=== PATIENT | female | born 2000 | race Hispanic/Latino ===

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

== ENCOUNTER 2021-01-07 17:13 | Emergency (ER) | payer OTHER ==
[2021-01-07 18:16] LABS: #Lymphocytes 1.2 thou/uL (1.20-3.40); #Monocytes 0.5 thou/uL (0.11-0.59); #Neutrophils 6.3 thou/uL (1.40-6.50); %Basophils 0.3 % (0.0-1.0); %Eosinophils 0.3 % (0.0-10.0); %Lymphocytes 14.8 % (28.0-48.0); %Monocytes 5.7 % (0.0-4.0); %Neutrophils 78.9 % (31.0-61.0); Hemoglobin 13.6 g/dL (12.0-16.0); Mean Corpuscular HGB CONC 33.9 g/dL (32.0-36.0); Mean Corpuscular Hemoglobin 30.4 pg (25.0-35.0); Mean Corpuscular Volume 89.6 fL (78.0-98.0); Mean Platelet Volume 8.4 fL (7.4-10.4); Platelet Count 184 thou/uL (130-400); RBC Distribution Width 11.7 % (11.5-14.5); Red Blood Cell (RBC) Count 4.47 mill/uL (4.00-5.20)
[2021-01-07 18:19] LABS: Bacteria/HPF None Seen HPF (None Seen); Bilirubin Negative (Negative); Blood, Urine Negative (Negative); Clarity Clear (Clear); Glucose, Urine (Dipstick) Normal (Negative); Ketone, Urine 60 mg/dL (Negative); Leukocyte Negative Leu/uL (Negative); Nitrite Negative (Negative); Protein, Urine (Dipstick) 50 mg/dL (Neg-Trace); RBC/HPF 0-3 HPF (0-3); Specific Gravity, Urine 1.033 (1.002-1.036); WBC/HPF 0-3 HPF (0-3)
[2021-01-07 18:21] LABS: Pregnancy Test - Urine (BHCG) POSITIVE (Negative); Pregu Control Background? CLEAR/WHITE (CLR/WHITE); Pregu Control Bar Appear? YES (CONTROL BAR); Specific Gravity 1.033 (1.002-1.036)
== END 2021-01-07 20:15 | disposition home or self-care (01) ==
LOC: ERS 17:13
DX: O26.853 Spotting complicating pregnancy, third trimester (principal); O99.891 Other specified diseases and conditions complicating pregnancy; R51.9 Headache, unspecified; Z3A.28 28 weeks gestation of pregnancy
CPT/HCPCS: 76856; 81003; 81015; 81025; 84702; 85025; 86850; 86900; 86901

== ENCOUNTER 2021-10-04 09:18 | Emergency (ER) | payer OTHER, SELFPAY ==
[2021-10-04] MEDS ORDERED: Acetaminophen 500 MG TAB ONE (10:11)
[2021-10-04 21:48] LABS: SARS-CoV-2 PCR by NAA Not Detected (NotDetected)
== END 2021-10-04 11:44 | disposition home or self-care (01) ==
LOC: ERS 09:18
DX: O99.511 Diseases of the respiratory system complicating pregnancy, first trimester (principal); J10.1 Influenza due to other identified influenza virus with other respiratory manifestations; Z20.822 Contact with and (suspected) exposure to COVID-19; Z3A.01 Less than 8 weeks gestation of pregnancy
CPT/HCPCS: 36415; 84702; 87804; 99283; U0003; U0005

== ENCOUNTER 2021-11-19 22:56 | Emergency (ER) | payer MEDICAID, SELFPAY ==
[2021-11-19] MEDS ORDERED: Metoclopramide HCl 10 MG/2 ML VIAL ONE (23:26)
[2021-11-19] MEDS ORDERED: Dicyclomine 20 MG/2 ML VIAL ONE (23:26)
[2021-11-19] MEDS ORDERED: diphenhydrAMINE 50 MG/ML VIAL ONE (23:27)
[2021-11-19 23:48] LABS: #Eosinphils 0.1 thou/uL (0.0-0.7); #Lymphocytes 1.4 thou/uL (1.20-3.40); #Monocytes 0.3 thou/uL (0.11-0.59); #Neutrophils 3.6 thou/uL (1.40-6.50); %Basophils 0.2 % (0.0-1.0); %Eosinophils 1.3 % (0.0-10.0); %Lymphocytes 25.9 % (28.0-48.0); %Monocytes 6.3 % (0.0-4.0); %Neutrophils 66.3 % (31.0-61.0); Hemoglobin 13.3 g/dL (12.0-16.0); Mean Corpuscular HGB CONC 33.2 g/dL (32.0-36.0); Mean Corpuscular Hemoglobin 30.4 pg (25.0-35.0); Mean Corpuscular Volume 91.5 fL (78.0-98.0); Mean Platelet Volume 8.1 fL (7.4-10.4); Platelet Count 220 thou/uL (130-400); RBC Distribution Width 12.3 % (11.5-14.5); Red Blood Cell (RBC) Count 4.36 mill/uL (4.00-5.20); White Blood Cell (WBC) Count 5.4 thou/uL (4.8-10.8)
[2021-11-20 00:46] LABS: Bilirubin Negative (Negative); Blood, Urine Negative (Negative); Clarity Clear (Clear); Glucose, Urine (Dipstick) Normal (Negative); Ketone, Urine Negative (Negative); Leukocyte Negative Leu/uL (Negative); Nitrite Negative (Negative); Protein, Urine (Dipstick) Negative (Neg-Trace); Specific Gravity, Urine 1.009 (1.002-1.036); Urobilinogen Normal mg/dL (Less than 2); pH, Urine 5.5 (5.0-9.0)
[2021-11-20 18:37] LABS: Chlam.trachomatis by PCR,Urine Not Detected (NotDetected)
== END 2021-11-20 02:54 | disposition home or self-care (01) ==
LOC: ERS 22:56
DX: O20.0 Threatened abortion (principal); O99.891 Other specified diseases and conditions complicating pregnancy; R51.9 Headache, unspecified; Z3A.12 12 weeks gestation of pregnancy
CPT/HCPCS: 36415; 76856; 81003; 84702; 85025; 86900; 86901; 87480; 87491; 87510; 87591; 87660; 96374; 96375; J0500; J1200; J2765

== ENCOUNTER 2021-12-11 14:48 | Emergency (ER) | payer MEDICAID ==
[2021-12-11 15:37] LABS: #Lymphocytes 0.9 thou/uL (1.20-3.40); #Monocytes 0.4 thou/uL (0.11-0.59); %Basophils 0.4 % (0.0-1.0); %Eosinophils 0.9 % (0.0-10.0); %Lymphocytes 16.2 % (28.0-48.0); %Neutrophils 75.5 % (31.0-61.0); Hemoglobin 12.4 g/dL (12.0-16.0); Mean Corpuscular HGB CONC 33.7 g/dL (32.0-36.0); Mean Corpuscular Hemoglobin 30.6 pg (25.0-35.0); Mean Corpuscular Volume 90.9 fL (78.0-98.0); Mean Platelet Volume 7.8 fL (7.4-10.4); Platelet Count 182 thou/uL (130-400); Red Blood Cell (RBC) Count 4.04 mill/uL (4.00-5.20); White Blood Cell (WBC) Count 5.3 thou/uL (4.8-10.8)
[2021-12-11 15:58] LABS: ALT (SGPT) 14 U/L (8-55); AST (SGOT) 16 U/L (5-34); Albumin 3.5 g/dL (3.5-5.0); Alkaline Phosphatase 60 U/L (40-100); Anion Gap 12 mmol/L (10-20); BUN (Urea Nitrogen) 8 mg/dL (7.0-18.7); Bilirubin, Total 0.3 mg/dL (0.2-1.2); Calc. Creatinine Clearance 0 mL/min (70-130); Calcium 8.9 mg/dL (7.8-10.44); Carbon Dioxide 22 mmol/L (22-29); Chloride 106 mmol/L (98-107); Globulin 2.8 g/dL (2.4-3.5); Glucose 77 mg/dL (70-105); Potassium 3.7 mmol/L (3.5-5.1); Protein, Total 6.3 g/dL (6.0-8.3); Sodium 136 mmol/L (136-145)
== END 2021-12-11 17:40 | disposition home or self-care (01) ==
LOC: ERS 14:48
DX: O20.0 Threatened abortion (principal); Z3A.15 15 weeks gestation of pregnancy
CPT/HCPCS: 36415; 76815; 80053; 84702; 85025; 86900; 86901

== ENCOUNTER 2022-12-01 13:29 | Emergency (ER) | payer OTHER ==
[2022-12-01 14:21] LABS: Bilirubin Negative (Negative); Blood, Urine 3+ (Negative); Clarity Turbid (Clear); Glucose, Urine (Dipstick) Normal (Negative); Ketone, Urine Negative (Negative); Leukocyte 250 Leu/uL (Negative); Nitrite Negative (Negative); Protein, Urine (Dipstick) Negative (Neg-Trace); RBC/HPF Greater than 50 HPF (0-3); Specific Gravity, Urine 1.021 (1.002-1.036); Urobilinogen Normal mg/dL (Less than 2); WBC/HPF 21-50 HPF (0-3)
[2022-12-01 14:22] LABS: Bacteria/HPF 1+ HPF (None Seen)
[2022-12-01 14:23] LABS: Pregnancy Test - Urine (BHCG) Negative (Negative); Pregu Control Background? CLEAR/WHITE (CLR/WHITE); Pregu Control Bar Appear? YES (CONTROL BAR); Specific Gravity 1.021 (1.002-1.036)
== END 2022-12-01 14:41 | disposition home or self-care (01) ==
LOC: ERS 13:29
DX: N39.0 Urinary tract infection, site not specified (principal); F17.290 Nicotine dependence, other tobacco product, uncomplicated
CPT/HCPCS: 81003; 81015; 81025; 99284

== ENCOUNTER 2023-06-08 22:28 | Emergency (ER) | payer OTHER, SELFPAY ==
[2023-06-08] MEDS ORDERED: Acetaminophen 500 MG TAB ONE (22:57)
[2023-06-08 23:03] LABS: #Monocytes 0.5 thou/uL (0.11-0.59); #Neutrophils 8.9 thou/uL (1.40-6.50); %Basophils 0.2 % (0.0-1.0); %Eosinophils 0.2 % (0.0-10.0); %Lymphocytes 7.6 % (21.0-51.0); %Monocytes 4.9 % (0.0-10.0); Hematocrit 43.2 % (36.0-47.0); Hemoglobin 14.3 g/dL (12.0-16.0); Mean Corpuscular HGB CONC 33.1 g/dL (32.0-36.0); Mean Corpuscular Hemoglobin 28.8 pg (27.0-31.0); Mean Corpuscular Volume 86.9 fl (78.0-98.0); Mean Platelet Volume 10.5 fL (7.4-10.4); Platelet Count 241 10x3/uL (130-400); RBC Distribution Width 12.6 % (11.5-14.5); Red Blood Cell (RBC) Count 4.97 mill/uL (4.20-5.40); White Blood Cell (WBC) Count 10.2 10x3/uL (4.8-10.8)
[2023-06-08 23:07] LABS: Bacteria/HPF None Seen HPF (None Seen); Bilirubin Negative (Negative); Blood, Urine Negative (Negative); CAUTI Indications for Culture Pelvic or flank pain; Clarity Clear (Clear); Glucose, Urine (Dipstick) Normal (Negative); Ketone, Urine Negative (Negative); Leukocyte Negative Leu/uL (Negative); Nitrite Negative (Negative); Protein, Urine (Dipstick) Negative (Neg-Trace); RBC/HPF 0-3 HPF (0-3); Specific Gravity, Urine 1.019 (1.002-1.036); Squamous Epithelial 0-3 HPF (0-3); Urobilinogen Normal mg/dL (Less than 2); WBC/HPF 0-3 HPF (0-3)
[2023-06-08 23:08] LABS: Urine Culture Reflex No No
[2023-06-08 23:28] LABS: ALT (SGPT) 25 U/L (8-55); AST (SGOT) 29 U/L (5-34); Albumin 4.9 g/dL (3.5-5.0); Alkaline Phosphatase 69 U/L (40-110); Anion Gap 13 mmol/L (10-20); BUN (Urea Nitrogen) 11 mg/dL (7.0-18.7); Bilirubin, Total 0.3 mg/dL (0.2-1.2); Calc. Creatinine Clearance 0 mL/min (70-130); Calcium 9.5 mg/dL (7.8-10.44); Carbon Dioxide 25 mmol/L (22-29); Chloride 101 mmol/L (98-107); Estimated GFR 116; Glucose 91 mg/dL (70-105); Potassium 3.7 mmol/L (3.5-5.1); Protein, Total 7.9 g/dL (6.0-8.3); Sodium 135 mmol/L (136-145)
[2023-06-08 23:57] LABS: SARS-CoV-2 NAA Rapid Test Not Detected (NotDetected)
[2023-06-09] MEDS ORDERED: Ketorolac Tromethamine 30 MG/ML VIAL ONE (00:21)
[2023-06-09] MEDS ORDERED: Piperacillin/Tazobactam 3.375 GM VIAL ONE (00:22)
[2023-06-09] MEDS ORDERED: Sodium Chloride 0.9% 100 ML ONE (00:25)
[2023-06-09] MEDS ORDERED: Iopamidol-370 76% 500 ML MDV (1 ML CHARGE) ONE (10:06)
== END 2023-06-09 02:15 | disposition home or self-care (01) ==
LOC: ERS 22:28
DX: B34.9 Viral infection, unspecified (principal); F17.200 Nicotine dependence, unspecified, uncomplicated; Z20.822 Contact with and (suspected) exposure to COVID-19
CPT/HCPCS: 71045; 74177; 80053; 81001; 83605; 85025; 87040; 96361; 96365; 96375; J1885; J2543; J3490; Q9967

== ENCOUNTER 2023-08-02 09:47 | Day surgery (SDC) | payer SELFPAY ==
[2023-08-02] MEDS ORDERED: Morphine 4 MG/ML VIAL ONE (10:13)
[2023-08-02] MEDS ORDERED: Ondansetron PF 4 MG/2 ML Vial ONE ×3 (10:14→15:22)
[2023-08-02 10:31] LABS: #Eosinphils 0.1 thou/uL (0.0-0.7); #Monocytes 0.3 thou/uL (0.11-0.59); #Neutrophils 2.6 thou/uL (1.40-6.50); %Basophils 0.5 % (0.0-1.0); %Eosinophils 1.5 % (0.0-10.0); %Lymphocytes 24.2 % (21.0-51.0); %Monocytes 8.1 % (0.0-10.0); %Neutrophils 65.7 % (42.0-75.0); Hematocrit 40.4 % (36.0-47.0); Hemoglobin 13.4 g/dL (12.0-16.0); Mean Corpuscular HGB CONC 33.2 g/dL (32.0-36.0); Mean Corpuscular Hemoglobin 28.6 pg (27.0-31.0); Mean Corpuscular Volume 86.3 fl (78.0-98.0); Mean Platelet Volume 10.6 fL (7.4-10.4); Platelet Count 219 10x3/uL (130-400); RBC Distribution Width 12.7 % (11.5-14.5); Red Blood Cell (RBC) Count 4.68 mill/uL (4.20-5.40)
[2023-08-02 10:37] LABS: BHCG - Serum Negative (NEGATIVE); Pregs Control Background? CLEAR/WHITE (CLR/WHITE); Pregs Control Bar Appear? YES (CONTROL BAR)
[2023-08-02 10:58] LABS: Troponin I Less than 0.010 ng/mL (< 0.028)
[2023-08-02 11:00] LABS: ALT (SGPT) 15 U/L (8-55); AST (SGOT) 32 U/L (5-34); Albumin 4.3 g/dL (3.5-5.0); Alkaline Phosphatase 72 U/L (40-110); Anion Gap 10 mmol/L (10-20); BUN (Urea Nitrogen) 12 mg/dL (7.0-18.7); Bilirubin, Total 0.8 mg/dL (0.2-1.2); Calc. Creatinine Clearance 0 mL/min (70-130); Calcium 9.4 mg/dL (7.8-10.44); Carbon Dioxide 26 mmol/L (22-29); Chloride 107 mmol/L (98-107); Estimated GFR 114; Globulin 3.6 g/dL (2.4-3.5); Glucose 78 mg/dL (70-105); Lipase 26 U/L (8-78); Potassium 3.8 mmol/L (3.5-5.1); Protein, Total 7.9 g/dL (6.0-8.3); Sodium 139 mmol/L (136-145)
[2023-08-02] MEDS ORDERED: Sodium Chloride 0.9% 100 ML ONE (11:40)
[2023-08-02] MEDS ORDERED: Piperacillin/Tazobactam 3.375 GM VIAL ONE (11:40)
[2023-08-02] MEDS ORDERED: Ibuprofen 200 MG TAB PO SCH ×2 (12:00→21:00)
[2023-08-02] MEDS ORDERED: Morphine 2 MG/ML VIAL SLOW IVP PRN (12:07)
[2023-08-02 12:36] LABS: Bacteria/HPF None Seen HPF (None Seen); Bilirubin Negative (Negative); Blood, Urine Negative (Negative); CAUTI Indications for Culture Pelvic or flank pain; Clarity Turbid (Clear); Glucose, Urine (Dipstick) Normal (Negative); Ketone, Urine Negative (Negative); Leukocyte 25 Leu/uL (Negative); Nitrite Negative (Negative); Protein, Urine (Dipstick) Negative (Neg-Trace); RBC/HPF 0-3 HPF (0-3); Specific Gravity, Urine 1.013 (1.002-1.036); Urobilinogen Normal mg/dL (Less than 2); WBC/HPF 0-3 HPF (0-3); pH, Urine 5.5 (5.0-9.0)
[2023-08-02 12:39] LABS: Urine Culture Reflex No No
[2023-08-02] MEDS ORDERED: traMADol HCl 50 MG TAB PO SCH (13:00)
[2023-08-02] MEDS ORDERED: LevoFLOXacin 500 mg/D5W 500 MG in Premix 1 BAG IVPB SCH (13:15)
[2023-08-02] MEDS ORDERED: Ketorolac Tromethamine 30 MG/ML VIAL IVP SCH (13:15)
[2023-08-02] MEDS ORDERED: Scopolamine 1 mg/72 hour Patch TOP SCH (13:15)
[2023-08-02] MEDS ORDERED: Sodium Chloride 0.9% 1,000 ML IV SCH (13:15)
[2023-08-02] MEDS ORDERED: Ketorolac Tromethamine 30 MG/ML VIAL ONE (13:20)
[2023-08-02] MEDS ORDERED: LevoFLOXacin 500 mg/D5W 100 ML BAG ONE (13:20)
[2023-08-02] MEDS ORDERED: Meperidine HCl/PF 25 MG/ML VIAL ONE (13:33)
[2023-08-02] MEDS ORDERED: PROPOFOL 20 ML ONE (13:58)
[2023-08-02] MEDS ORDERED: Rocuronium Bromide 10 MG/ML (10ML VIAL) ONE ×2 (13:58→15:22)
[2023-08-02] MEDS ORDERED: Lidocaine 1% PF 5 ML VIAL ONE ×2 (13:58→15:22)
[2023-08-02] MEDS ORDERED: Succinylcholine 200 MG/10 ml SYRINGE FS ONE ×2 (13:58→15:22)
[2023-08-02] MEDS ORDERED: Acetaminophen 325 MG TAB PO SCH (14:00)
[2023-08-02] MEDS ORDERED: EPINEPHrine 1 MG/ML VIAL ONE (14:21)
[2023-08-02] MEDS ORDERED: Bupivacaine PF 0.5% 30 ML VIAL ONE (14:22)
[2023-08-02] MEDS ORDERED: fentaNYL 50 mcg/mL 1 mL Vial ONE (15:13)
[2023-08-02] MEDS ORDERED: Dexamethasone 20 MG/5 ML VIAL ONE ×2 (15:15→15:22)
[2023-08-02] MEDS ORDERED: Metoclopramide HCl 10 MG/2 ML VIAL ONE ×2 (15:16→15:22)
[2023-08-02] MEDS ORDERED: Glycopyrrolate 0.2 MG/ML 5 ML SYRINGE ONE ×2 (15:22→15:53)
[2023-08-02] MEDS ORDERED: PROPOFOL 200 MG/20 ML VIAL ONE (15:22)
[2023-08-02] MEDS ORDERED: NEOSTIGMINE 3 MG/3 ML SYR 3 MG/3 ML SYRINGE ONE ×2 (15:22→15:53)
== END 2023-08-02 17:37 | disposition home or self-care (01) ==
LOC: ERS 09:47 → SDC 12:30
PROVIDERS: ATTEND Surgery
PROC: 0FT40ZZ Resection of Gallbladder, Open Approach (ICD-10-PCS; principal; 2023-08-02)
DX: K80.12 Calculus of gallbladder with acute and chronic cholecystitis without obstruction (principal); F17.290 Nicotine dependence, other tobacco product, uncomplicated
CPT/HCPCS: 71045; 76705; 80053; 81001; 83690; 84484; 84703; 85025; 88304; 93005; 96361; 96365; 96375; C1889; J0171; J1100; J1885; J1956; J2175; J2270; J2405; J2543; J2704; J2765; J3010; J3490; S0020

== ENCOUNTER 2023-08-07 00:49 | Emergency (ER) | payer SELFPAY ==
[2023-08-07 02:10] LABS: #Eosinphils 0.1 thou/uL (0.0-0.7); #Monocytes 0.3 thou/uL (0.11-0.59); #Neutrophils 3.4 thou/uL (1.40-6.50); %Basophils 0.4 % (0.0-1.0); %Eosinophils 1.3 % (0.0-10.0); %Lymphocytes 14.9 % (21.0-51.0); %Monocytes 7.1 % (0.0-10.0); %Neutrophils 76.1 % (42.0-75.0); Hematocrit 42.8 % (36.0-47.0); Hemoglobin 14.1 g/dL (12.0-16.0); Mean Corpuscular HGB CONC 32.9 g/dL (32.0-36.0); Mean Corpuscular Volume 87.9 fl (78.0-98.0); Mean Platelet Volume 10.7 fL (7.4-10.4); Platelet Count 210 10x3/uL (130-400); RBC Distribution Width 12.8 % (11.5-14.5); Red Blood Cell (RBC) Count 4.87 mill/uL (4.20-5.40); White Blood Cell (WBC) Count 4.5 10x3/uL (4.8-10.8)
[2023-08-07] MEDS ORDERED: Ondansetron PF 4 MG/2 ML Vial ONE (02:32)
[2023-08-07] MEDS ORDERED: Morphine 4 MG/ML VIAL ONE (02:32)
[2023-08-07 02:37] LABS: ALT (SGPT) 192 U/L (8-55); AST (SGOT) 64 U/L (5-34); Albumin 4.1 g/dL (3.5-5.0); Alkaline Phosphatase 129 U/L (40-110); Anion Gap 14 mmol/L (10-20); BUN (Urea Nitrogen) 7 mg/dL (7.0-18.7); Bilirubin, Total 5.3 mg/dL (0.2-1.2); Calc. Creatinine Clearance 0 mL/min (70-130); Calcium 9.5 mg/dL (7.8-10.44); Carbon Dioxide 24 mmol/L (22-29); Chloride 100 mmol/L (98-107); Estimated GFR 120; Globulin 3.5 g/dL (2.4-3.5); Glucose 86 mg/dL (70-105); Lipase 38 U/L (8-78); Potassium 3.6 mmol/L (3.5-5.1); Protein, Total 7.6 g/dL (6.0-8.3); Sodium 134 mmol/L (136-145)
[2023-08-07 03:15] LABS: Bilirubin Large (Negative); Blood, Urine Negative (Negative); Glucose, Urine (Dipstick) 100 mg/dL (Negative); Ketone, Urine > or equal to 80 mg/dL (Negative); Leukocyte Negative (Negative); Nitrite Positive (Negative); Protein, Urine (Dipstick) Trace mg/dL (Neg-Trace); pH, Urine 6.5 (5.0-9.0)
[2023-08-07 03:22] LABS: Clarity Clear (Clear)
[2023-08-07 03:27] LABS: Bacteria/HPF 3+ HPF (None Seen); CAUTI Indications for Culture Acute Hematuria; RBC/HPF 0-3 HPF (0-3); Squamous Epithelial 21-50 HPF (0-3)
[2023-08-07 03:35] LABS: Urine Culture Reflex Yes Yes
[2023-08-07] MEDS ORDERED: cefTRIAXone (ROCEPHIN) 1 GM VIAL ONE (05:17)
[2023-08-07] MEDS ORDERED: Iopamidol-370 76% 500 ML MDV (1 ML CHARGE) ONE (12:10)
== END 2023-08-07 05:58 | disposition home or self-care (01) ==
LOC: ERS 00:49
DX: N39.0 Urinary tract infection, site not specified (principal); F17.290 Nicotine dependence, other tobacco product, uncomplicated
CPT/HCPCS: 36415; 74177; 80053; 81001; 83605; 83690; 85025; 87086; 96361; 96374; 96375; J0696; J2270; J2405; Q9967

== ENCOUNTER 2024-06-05 16:57 | Emergency (ER) | payer SELFPAY ==
[2024-06-05] MEDS ORDERED: Ketorolac Tromethamine 30 MG (1 mL) VIAL ONE (18:42)
== END 2024-06-05 19:20 | disposition home or self-care (01) ==
LOC: ERS 16:57
DX: M77.01 Medial epicondylitis, right elbow (principal); F17.290 Nicotine dependence, other tobacco product, uncomplicated
CPT/HCPCS: 96372; 99283; J1885

== ENCOUNTER 2024-08-08 22:26 | Emergency (ER) | payer SELFPAY | END 2024-08-08 23:45 | disposition home or self-care (01) | LOC: ERS 22:26 | DX: J06.9 Acute upper respiratory infection, unspecified (principal); F17.290 Nicotine dependence, other tobacco product, uncomplicated | CPT/HCPCS: 87428; 99283 ==